=== PATIENT | female | born 1955 | race Caucasian/White ===

== ENCOUNTER 2024-12-23 08:14 | Day surgery (SDC) | payer OTHER ==
[~2024-12-23] VITALS: Ht 170.2 cm; Wt 90.9 kg
[~2024-12-23 08:14] MED LIST: ASPI81EC PO; BECL40OI INH; FLUT.05NI; LEVSOD50 PO; OLME20 PO; ROSU10TA PO
[2024-12-23] MEDS ORDERED: BREO ELLIPTA 11 EAC1 (08:41)
[2024-12-23] MEDS ORDERED: LOSARTAN POT TAB 50M (08:41)
[2024-12-23] MEDS ORDERED: SYNTHROID75 MCG (08:41)
[2024-12-23] MEDS ORDERED: Ondansetron HCl 2 MG / ML 2ML Vial ONE (11:18)
[2024-12-23 12:03] VITALS: BP 131/81
--- NOTE | 2024-12-23 12:04 | NUR ---
12/23/24 1204 Desmond Rincon PT VOIDED PRIOR TO D/C. PT LEFT WITHOUT WRITTEN D/C INSTRUCTIONS. PT'S CALLED AND REFUSED COPY OF INSTRUCTIONS.
--- NOTE | 2024-12-23 12:19 | NUR ---
12/23/24 1219 Desmond Rincon PT VOMITTED DURING PROCEDURE. PT SUCTIONED AND 4MG IV ZOFRAN ADMINISTERED. PT ALSO EXPERIENCED BLOODY NOSE DURING PROCEDURE. SHE DID NOT REPORT NASAL PAIN AND BLEEDING APPEARED TO STOP PRIOR TO D/C.
== END 2024-12-23 11:50 | disposition home or self-care (01) ==
LOC: ORSCSDS 08:14
PROVIDERS: Surgery
PROC: 0DJD8ZZ Inspection of Lower Intestinal Tract, Via Natural or Artificial Opening Endoscopic (ICD-10-PCS; principal; 2024-12-23 09:45)
DX: Z12.11 Encounter for screening for malignant neoplasm of colon (principal); Z80.0 Family history of malignant neoplasm of digestive organs; Z86.0101 Personal history of adenomatous and serrated colon polyps; K57.30 Diverticulosis of large intestine without perforation or abscess without bleeding; J45.909 Unspecified asthma, uncomplicated; E78.5 Hyperlipidemia, unspecified; I10 Essential (primary) hypertension; E03.9 Hypothyroidism, unspecified; Z79.82 Long term (current) use of aspirin; Z79.899 Other long term (current) drug therapy
CPT/HCPCS: J2405; J2704; J7120